=== PATIENT | female | born 1975 | race Caucasian/White ===

== ENCOUNTER 2018-12-08 11:37 | Emergency (ER) | payer BC ==
[2018-12-08] MEDS ORDERED: Ketorolac 60 MG/2 ML SDV IM ONE (11:50)
--- NOTE | 2018-12-08 12:25 | EDM.PDOC ---
ED HPI GENERAL MEDICAL PROBLEM - General Chief Complaint: Back Pain or Injury Stated Complaint: LOW BACK PAIN Time Seen by Provider: 12/08/18 12:21 - History of Present Illness INITIAL COMMENTS - FREE TEXT/NARRATIVE: 43 y/o female with history of back pain who presented to the ER with worsening back pain and radiation to right leg. States she [place] and has not had any imaging for her back. No pain medications. Rates pain 8/10. No saddle anesthesia, bowel, urinary incontinence. Able to walk with some pain. No abdominal pain, dysuria, diarrhea, constipation. lower back Pain Score (Numeric/FACES): 8 - Related Data Allergies Allergy/AdvReac Type Severity Reaction Status Date / Time No Known Allergies Allergy Verified 12/08/18 11:48 Home Meds: Home Meds Lisinopril [Prinivil] 10 mg PO DAILY 12/08/18 [History] Orphenadrine Citrate [Orphenadrine Citrate ER] 100 mg PO BID PRN #30 tablet.er 12/08/18 [Rx] Spironolactone [Aldactone] 25 mg PO BID 12/08/18 [History] predniSONE [Prednisone] 40 mg PO DAILY 5 Days #10 tablet 12/08/18 [Rx] traMADol HCl [Tramadol HCl] 50 mg PO TID #21 tablet 12/08/18 [Rx] Past Medical History HEENT History: Reports: None Cardiovascular History: Reports: Hypertension Respiratory History: Reports: None Gastrointestinal History: Reports: None Genitourinary History: Reports: None MATERIALS SCHEDULER History: Reports: None Musculoskeletal History: Reports: None Neurological History: Reports: None Psychiatric History: Reports: None Endocrine/Metabolic History: Reports: None Hematologic History: Reports: None Immunologic History: Reports: None Oncologic (Cancer) History: Reports: None Dermatologic History: Reports: None - Infectious Disease History Infectious Disease History: Reports: Chicken Pox, Human Papilloma Virus (HPV) - Past Surgical History Head Surgeries/Procedures: Reports: None HEENT Surgical History: Reports: None Cardiovascular Surgical History: Reports: None Respiratory Surgical History: Reports: None GI Surgical History: Reports: None Female Surgical History: Reports: Breast Biopsy, D&C Endocrine Surgical History: Reports: None Neurological Surgical History: Reports: None Musculoskeletal Surgical History: Reports: None Oncologic Surgical History: Reports: None Dermatological Surgical History: Reports: None Social & Family History - Family History Family Medical History: Noncontributory - Tobacco Use Smoking Status *Q: Current Every Day Smoker Years of Tobacco use: 20 Packs/Tins Daily: 0.5 - Caffeine Use Caffeine Use: Reports: Soda - Recreational Drug Use Recreational Drug Use: No ED ROS GENERAL - Review of Systems Review Of Systems: ROS reveals no pertinent complaints other than HPI. ED EXAM,LOWER BACK PAIN/INJURY - Physical Exam Exam: See Below Respiratory/Chest: No Respiratory Distress, Lungs Clear Cardiovascular: Normal Peripheral Pulses, Regular Rate, Rhythm GI/Abdominal: Normal Bowel Sounds, Soft, Non-Tender Back Exam: Muscle Spasm, Paraspinal Tenderness, Vertebral Tenderness. No: CVA Tenderness (L), CVA Tenderness (R) Neurological: Alert Course - Vital Signs Text/Narrative:: lumbar xray, toradol, norflex xrays unremarkable Last Recorded V/S: Last Vital Signs Temp 36.4 C 12/08/18 11:44 Pulse 93 12/08/18 11:44 Resp 18 12/08/18 11:44 BP 134/89 12/08/18 11:44 Pulse Ox 99 12/08/18 11:44 - Orders/Labs/Meds Meds: Medications Discontinued Medications Generic Name Dose Route Start Last Admin Trade Name Freq PRN Reason Stop Dose Admin Ketorolac Tromethamine 60 mg 12/08/18 11:50 12/08/18 12:10 Toradol IM 12/08/18 11:51 60 mg ONETIME ONE Administration Orphenadrine Citrate 60 mg 12/08/18 11:50 12/08/18 12:10 Norflex IM 12/08/18 11:51 60 mg NOW STA Administration Departure - Departure Time of Disposition: 13:33 Disposition: Home, Self-Care 01 Clinical Impression: Lumbago with sciatica, right side - Discharge Information *PRESCRIPTION DRUG MONITORING PROGRAM REVIEWED*: Not Applicable *COPY OF PRESCRIPTION DRUG MONITORING REPORT IN PATIENT AMEYA: Not Applicable Prescriptions: Orphenadrine Citrate [Orphenadrine Citrate ER] 100 mg PO BID PRN #30 tablet.er PRN Reason: Muscle Spasm predniSONE [Prednisone] 40 mg PO DAILY 5 Days #10 tablet traMADol HCl [Tramadol HCl] 50 mg PO TID #21 tablet Referrals: PCP,None [Primary Care Provider] - Forms: ED Department Discharge Additional Instructions: The following information is given to patients seen in the emergency department who are being discharged to home. This information is to outline your options for follow-up care. We provide all patients seen in our emergency department with a follow-up referral. The need for follow-up, as well as the timing and circumstances, are variable depending upon the specifics of your emergency department visit. If you don't have a primary care physician on staff, we will provide you with a referral. We always advise you to contact your personal physician following an emergency department visit to inform them of the circumstance of the visit and for follow-up with them and/or the need for any referrals to a consulting specialist. The emergency department will also refer you to a specialist when appropriate. This referral assures that you have the opportunity for follow-up care with a specialist. All of these measure are taken in an effort to provide you with optimal care, which includes your follow-up. Under all circumstances we always encourage you to contact your private physician who remains a resource for coordinating your care. When calling for follow-up care, please make the office aware that this follow-up is from your recent emergency room visit. If for any reason you are refused follow-up, please contact the [facility] Emergency Department at and asked to speak to the emergency department charge nurse. Follow-up with Dr. Singleton in 1-2 weeks.
--- NOTE | 2018-12-08 12:58 | CR ---
INDICATION: Pain TECHNIQUE: Lumbar spine 3 view. COMPARISON: None FINDINGS: Bones: Mild levoscoliosis of the lumbar spine. No fractures or significant bone lesions. Joints: No significant degenerative disc or facet changes. Soft tissues: Unremarkable. IMPRESSION: Unremarkable lumbar spine. Dictated by Diana Estevez MD @ Dec 08 2018 12:57PM Signed by Dr. Diana Estevez @ Dec 08 2018 12:57PM
--- NOTE | 2018-12-08 12:58 | CR ---
Indication: Pain Technique: Frontal view pelvis, frogleg lateral view right hip Comparison: None Findings: Bones: Alignment is normal. No fractures or bone lesions. Joint spaces: Unremarkable. Soft tissues: Unremarkable. Impression: Negative. Dictated by Diana Estevez MD @ Dec 08 2018 12:55PM Signed by Dr. Diana Estevez @ Dec 08 2018 12:56PM
== END 2018-12-08 13:54 | disposition home or self-care (01) ==
LOC: MW.ED 11:37
DX: M54.41 Lumbago with sciatica, right side (principal); I10 Essential (primary) hypertension; F17.210 Nicotine dependence, cigarettes, uncomplicated; Z79.899 Other long term (current) drug therapy
CPT/HCPCS: 72100; 73502; 96372; 96374; 99283; J1885; J2360